=== PATIENT | male | born 1960 | race Caucasian/White ===

== ENCOUNTER 2023-06-15 09:33 | Emergency (ER) | payer MEDICAID ==
[2023-06-15 09:50] VITALS: TEMP 97.8
--- NOTE | 2023-06-15 09:59 | ED ---
Neuro HPI - General Chief Complaint: Neuro Symptoms/Deficit Stated Complaint: R Side Numbness Time Seen by Provider: 06/15/23 09:40 Source: patient, family Mode of arrival: ambulatory Limitations: no limitations - History of Present Illness Is the patient presenting with stroke symptoms?: Yes Initial Comments: 63-year-old male with past medical history of stroke who presents emergency department reporting strokelike symptoms. States he went to bed around 1030. When he woke this morning he noted that he had weakness in his right hand. 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 He has had previous stroke approximately 8 years ago. States that he did have weakness on his right side however his symptoms completely resolved. He does have a cardiac defect, suspected PFO according to the patient's description. States that he was in a study through [facility] where they trialed closure versus aspirin. As no one within the aspirin group had a stroke the patient opted to continue aspirin instead of having his whole repaired. He has not had any issues in the past 8 years up until now. Patient denies any weakness in his leg. No speech deficit. No headache. Upon my evaluation it appears that the patient does have some right-sided facial droop. is at bedside and states that this is also new for him. No other alleviating, precipitating modifying factors - Related Data Home Medications: Home Medications Medication Instructions Recorded Confirmed Aspirin EC [Ecotrin] 325 mg PO DAILY 06/15/23 06/15/23 Previous Rx's Medication Instructions Recorded Clopidogrel [Plavix] 75 mg PO DAILY #30 tablet 06/15/23 Allergies/Adverse Reactions: Allergies Allergy/AdvReac Type Severity Reaction Status Date / Time No Known Allergies Allergy Verified 06/15/23 10:18 Review of Systems ROS Statement: Those systems with pertinent positive or pertinent negative responses have been documented in the HPI. ROS Other: All systems not noted in ROS Statement are negative. General Exam Limitations: no limitations General appearance: alert, in no apparent distress Head exam: Present: atraumatic, normocephalic, normal inspection Eye exam: Present: normal appearance, PERRL, EOMI. Absent: scleral icterus, conjunctival injection, periorbital swelling ENT exam: Present: mucous membranes moist, other (Patient has flattening of the nasolabial fold on the right. This does correct with smile) Neck exam: Present: normal inspection. Absent: tenderness, meningismus, lymphadenopathy Respiratory exam: Present: normal lung sounds bilaterally. Absent: respiratory distress, wheezes, rales, rhonchi, stridor Cardiovascular Exam: Present: regular rate, normal rhythm, normal heart sounds. Absent: systolic murmur, diastolic murmur, rubs, gallop, clicks GI/Abdominal exam: Present: soft, normal bowel sounds. Absent: distended, tenderness, guarding, rebound, rigid Extremities exam: Present: full ROM, normal capillary refill, other (Patient does have very minimal decreased building performance specialist strength on the right). Absent: tenderness, pedal edema, joint swelling, calf tenderness Back exam: Present: normal inspection Neurological exam: Present: alert, oriented X3, CN II-XII intact Psychiatric exam: Present: normal affect, normal mood Skin exam: Present: warm, dry, intact, normal color. Absent: rash Stroke [facility] - Lab Data Result diagrams: 06/15/23 10:01 06/15/23 10:01 Lab Results 06/15/23 06/15/23 06/15/23 Range/Units 09:59 10:01 10:01 WBC 4.9 (3.8-10.6) k/uL RBC 4.56 (4.30-5.90) m/uL Hgb 13.2 (13.0-17.5) gm/dL Hct 41.7 (39.0-53.0) % MCV 91.4 (80.0-100.0) fL MCH 28.9 (25.0-35.0) pg MCHC 31.6 (31.0-37.0) g/dL RDW 13.4 (11.5-15.5) % Plt Count 208 (150-450) k/uL MPV 8.1 Neutrophils % 60 % Lymphocytes % 25 % Monocytes % 8 % Eosinophils % 3 % Basophils % 1 % Neutrophils # 3.0 (1.3-7.7) k/uL Lymphocytes # 1.3 (1.0-4.8) k/uL Monocytes # 0.4 (0-1.0) k/uL Eosinophils # 0.2 (0-0.7) k/uL Basophils # 0.0 (0-0.2) k/uL PT 10.7 (10.0-12.5) sec INR 1.0 (<1.2) APTT 22.3 (22.0-30.0) sec Sodium (137-145) mmol/L Potassium (3.5-5.1) mmol/L Chloride (98-107) mmol/L Carbon Dioxide (22-30) mmol/L Anion Gap mmol/L BUN (9-20) mg/dL Creatinine (0.66-1.25) mg/dL Est GFR (CKD-EPI)AfAm (>60 ml/min/1.73 sqM) Est GFR (CKD-EPI)NonAf (>60 ml/min/1.73 sqM) Glucose (74-99) mg/dL POC Glucose (mg/dL) 89 (70-110) mg/dL POC Glu It Architect ID Gordon Barnett Calcium (8.4-10.2) mg/dL Total Bilirubin (0.2-1.3) mg/dL AST (17-59) U/L ALT (4-49) U/L Alkaline Phosphatase (38-126) U/L Creatine Kinase (55-170) U/L Troponin I (0.000-0.034) ng/mL Total Protein (6.3-8.2) g/dL Albumin (3.5-5.0) g/dL 06/15/23 06/15/23 Range/Units 10:01 10:01 WBC (3.8-10.6) k/uL RBC (4.30-5.90) m/uL Hgb (13.0-17.5) gm/dL Hct (39.0-53.0) % MCV (80.0-100.0) fL MCH (25.0-35.0) pg MCHC (31.0-37.0) g/dL RDW (11.5-15.5) % Plt Count (150-450) k/uL MPV Neutrophils % % Lymphocytes % % Monocytes % % Eosinophils % % Basophils % % Neutrophils # (1.3-7.7) k/uL Lymphocytes # (1.0-4.8) k/uL Monocytes # (0-1.0) k/uL Eosinophils # (0-0.7) k/uL Basophils # (0-0.2) k/uL PT (10.0-12.5) sec INR (<1.2) APTT (22.0-30.0) sec Sodium 140 (137-145) mmol/L Potassium 4.6 (3.5-5.1) mmol/L Chloride 107 (98-107) mmol/L Carbon Dioxide 25 (22-30) mmol/L Anion Gap 8 mmol/L BUN 22 H (9-20) mg/dL Creatinine 1.07 (0.66-1.25) mg/dL Est GFR (CKD-EPI)AfAm 85 (>60 ml/min/1.73 sqM) Est GFR (CKD-EPI)NonAf 74 (>60 ml/min/1.73 sqM) Glucose 91 (74-99) mg/dL POC Glucose (mg/dL) (70-110) mg/dL POC Glu It Architect ID Calcium 9.0 (8.4-10.2) mg/dL Total Bilirubin 0.6 (0.2-1.3) mg/dL AST 27 (17-59) U/L ALT 23 (4-49) U/L Alkaline Phosphatase 50 (38-126) U/L Creatine Kinase 72 (55-170) U/L Troponin I <0.012 (0.000-0.034) ng/mL Total Protein 7.0 (6.3-8.2) g/dL Albumin 4.3 (3.5-5.0) g/dL - Medical Decision Making Was pt. sent in by a medical professional or institution ([facility], ROO[facility] [employer], urgent care, hospital, or prison...) When possible be specific @ -No Did you speak to anyone other than the patient for history (EMS, parent, family, police, friend...)? What history was obtained from this source @ -Spoke with the patient's for history Did you review nursing and triage notes (agree or disagree)? Why? @ -I reviewed and agree with nursing and triage notes Were old charts reviewed (outside hosp., previous admission, EMS record, old EKG, old radiological studies, urgent care reports/EKG's, prison records)? Report findings @ -No old charts were reviewed Differential Diagnosis (chest pain, altered mental status, abdominal pain women, abdominal pain men, vaginal bleeding, weakness, fever, dyspnea, syncope, headache, dizziness, GI bleed, back pain, seizure, CVA, palpatations, mental health, musculoskeletal)? @ -Differential CVA Ischemic stroke, hemorrhagic stroke, brain tumor, atypical migraine, Wernicke's encephalopathy, seizure, multiple sclerosis, meningitis, encephalitis, hypoglycemia, Guillain-Buitrago, electrolytes disturbance, myasthenia gravis.... This is not meant to be an all-inclusive list EKG interpreted by me (3pts min.). @ -Yes and demonstrates sinus rhythm with a rate of 67. MN interval 158. QRS 91. QTc of 417. No acute ST segment elevations or depressions X-rays interpreted by me (1pt min.). @ -None done CT interpreted by me (1pt min.). @ -Yes and demonstrates acute stroke U/S interpreted by me (1pt. min.). @ -None done What testing was considered but not performed or refused? (CT, X-rays, U/S, labs)? Why? @ -Echo and neurology consultation however patient refuses to be admitted to the hospital What meds were considered but not given or refused? Why? @ -None Did you discuss the management of the patient with other professionals (professionals i.e. DrMagno, PA, ROOF SLATER, lab, RT, psych nurse, social media marketing specialist, imaging system administrator, teacher, chief medical officer, case specialist)? Give summary @ -Spoke with Dr. Armendariz. Also agreed that if the patient leaves he should go AGAINST MEDICAL ADVICE as he does have further testing he would like to complete. He does recommend that the patient take aspirin and Plavix daily if he is going to go home as we would still like to protect the patient against another stroke Was smoking cessation discussed for >3mins.? @ -No Was critical care preformed (if so, how long)? @ -Yes, 35 minutes for code stroke activation Were there social determinants of health that impacted care today? How? (Homelessness, low income, unemployed, alcoholism, drug addiction, transportation, low edu. Level, literacy, decrease access to med. care, alf, rehab)? @ -No Was there de-escalation of care discussed even if they declined (Discuss DNR or withdrawal of care, Hospice)? DNR status @ -No What co-morbidities impacted this encounter? (DM, HTN, Smoking, COPD, CAD, Cancer, CVA, ARF, Chemo, Hep., AIDS, mental health diagnosis, sleep apnea, morbid obesity)? @ -Previous CVA Was patient admitted / discharged? Hospital course, mention meds given and route, prescriptions, significant lab abnormalities, going to OR and other pertinent info. @ -Upon arrival patient was seen and evaluated in room 24. Thorough history and physical exam was performed. Last known well was 1030. NIH is 2. I did activate a code stroke. Patient does go for CT which demonstrates an acute stroke. I did recommend admission for neurology consultation however patient wants to go home at this time. He is aware of the risks including further strokes, permanent deficits, permanent disability and . Patient is willing to accept these risks and continues to want to go home. He is of sound mind and capable of making his own decision. His is at bedside and does attempt to talk him into staying however he does not want to. I did call and speak with Dr. Armendariz. He feels that the patient should be on aspirin and Plavix. He would like the patient admitted for further workup however he is made aware that the patient does not want to be admitted and will leave AGAINST MEDICAL ADVICE. We will offer recommendations and I will write a prescription for the Plavix to take in conjunction with aspirin as I do not want the patient to have any further deficits. Patient is aware of the bleeding risks. States that he needs to follow-up with his primary care doctor to evaluate these risks once he is initiated on this medication. He also needs to have an MRI and neurology consultation. Patient may need to see a bend sorter because of his cardiac defect leading to strokes. Patient understood all this. Requested that he return should he be agreeable to admission. Patient discharged AGAINST MEDICAL ADVICE home Undiagnosed new problem with uncertain prognosis? @ -No Drug Therapy requiring intensive monitoring for toxicity (Heparin, Nitro, Insulin, Cardizem)? @ -No Were any procedures done? @ -No Diagnosis/symptom? @ -Acute right-sided weakness, acute CVA Acute, or Chronic, or Acute on Chronic? @ -Acute Uncomplicated (without systemic symptoms) or Complicated (systemic symptoms)? @ -Complicated Side effects of treatment? @ -No Exacerbation, Progression, or Severe Exacerbation? @ -No Poses a threat to life or bodily function? How? (Chest pain, [place], [place], pneumonia, PE, COPD, DKA, ARF, appy, cholecystitis, CVA, Diverticulitis, Homicidal, S uicidal, threat to staff... 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 Past Surgical History: Hernia Repair Smoking Status: Never smoker Course Vital Signs 06/15/23 06/15/23 06/15/23 09:35 09:39 10:00 Temperature 97.8 F Pulse Rate 68 70 Respiratory 20 18 20 Rate Blood Pressure 171/110 165/104 159/95 O2 Sat by Pulse 100 98 98 Oximetry 06/15/23 06/15/23 06/15/23 10:39 11:15 11:39 Temperature Pulse Rate 64 70 67 Respiratory 16 18 16 Rate Blood Pressure 144/92 139/109 O2 Sat by Pulse 98 97 97 Oximetry 06/15/23 14:05 Temperature Pulse Rate 75 Respiratory 20 Rate Blood Pressure 145/86 O2 Sat by Pulse 98 Oximetry Disposition Clinical Impression: Right arm weakness, Facial droop, CVA (cerebral vascular accident) Disposition: LEFT AGAINST MEDICAL ADVICE Condition: Serious Instructions (If sedation given, give patient instructions): Stroke (DC) Additional Instructions: Please take the Plavix daily with a full dose aspirin. Follow-up with your primary care doctor and have an MRI performed. You will likely need to see a neurologist and bend sorter in the future. Please return for any new or worsening symptoms Prescriptions: Clopidogrel [Plavix] 75 mg PO DAILY #30 tablet Is patient prescribed a controlled substance at d/c from ED?: No Referrals: Kim Agrawal MD [Primary Care Provider] - 1-2 days Time of Disposition: 13:20
[2023-06-15 10:01] LABS: Glucose,Whole Blood 89 mg/dL (70-110)
[2023-06-15 10:12] LABS: Basophils % (A) 1 %; Eosinophils # (A) 0.2 k/uL (0-0.7); Eosinophils % (A) 3 %; HCT 41.7 % (39.0-53.0); HGB 13.2 gm/dL (13.0-17.5); Lymphocytes # (A) 1.3 k/uL (1.0-4.8); Lymphocytes % (A) 25 %; MCH 28.9 pg (25.0-35.0); MCHC 31.6 g/dL (31.0-37.0); MCV 91.4 fL (80.0-100.0); Mean Platelet Volume 8.1; Monocytes # (A) 0.4 k/uL (0-1.0); Monocytes % (A) 8 %; Neutrophils % (A) 60 %; Platelet Count 208 k/uL (150-450); RBC 4.56 m/uL (4.30-5.90); RDW 13.4 % (11.5-15.5); WBC 4.9 k/uL (3.8-10.6)
--- NOTE | 2023-06-15 10:18 | CT ---
CT head without contrast HISTORY: Neuro deficit possible stroke. COMPARISON: None. TECHNIQUE: Multiple axial images are obtained from the skull base to vertex without use of IV contras t material. FINDINGS: The ventricles, basal cisterns and sulci over the convexities are within normal limits and there is n o mass effect or shift of midline structures. There is a moderate focal area of decreased density involving the cortex and subcortical white matter of the left frontal lobe consistent with acute ischemic infarct. There is no acute intra or extra-ax ial hemorrhage. The posterior fossa including the brainstem, fourth ventricle and cerebellopontine angles are grossly normal. Intraorbital contents appear normal symmetric. Visualized paranasal sinuses and mastoid air cells are well aerated. Calvarium is intact. IMPRESSION: 1. Acute left frontal infarct. 2. No acute bleed or mass effect.
[2023-06-15 10:20] LABS: Partial Thromboplastin Time 22.3 sec (22.0-30.0); Prothrombin Time 10.7 sec (10.0-12.5)
[2023-06-15 10:21] LABS: ALT 23 U/L (4-49); AST 27 U/L (17-59); African American GFR (CKD) 85 (>60 ml/min/1.73 sqM); Albumin 4.3 g/dL (3.5-5.0); Alkaline Phosphatase 50 U/L (38-126); Anion Gap 8 mmol/L; Blood Urea Nitrogen 22 mg/dL (9-20); Carbon Dioxide 25 mmol/L (22-30); Chloride 107 mmol/L (98-107); Creatine Kinase 72 U/L (55-170); Glucose 91 mg/dL (74-99); Non-African American GFR(CKD) 74 (>60 ml/min/1.73 sqM); Sodium 140 mmol/L (137-145); Total Bilirubin 0.6 mg/dL (0.2-1.3)
[2023-06-15 10:38] LABS: Potassium 4.6 mmol/L (3.5-5.1)
--- NOTE | 2023-06-15 10:44 | CT ---
EXAMINATION TYPE: CT angio head neck DATE OF EXAM: 06/15/2023 HISTORY: right arm numbness COMPARISON: None CT DLP: 780.8 mGycm. Automated Exposure Control for Dose Reduction was Utilized. TECHNIQUE: CTA scan of the head and neck is performed with IV Contrast, patient injected with 65 mL of Isovue 370, axial images are obtained, coronal and sagittal reformatted images are reviewed. 3D re constructed images are created on an independent workstation and reviewed. FINDINGS: The brachiocephalic origins are widely patent and no significant stenosis. There is no significant stenosis of the common or internal carotid arteries within the neck. There is no stenosis of the vertebral arteries. Intracranially, there is no stenosis, segmental occlusion, sizable aneurysm sac or vascular malformat ion. IMPRESSION:. No significant abnormality seen. NASCET criteria was used in interpretation of this exam?
[2023-06-15] MEDS: CLOPIDOGREL 75 MG TAB PO STA (14:02)
[2023-06-15 14:27] VITALS: BP 145/86; PULSE 75; RESP 20
== END 2023-06-15 14:06 | disposition left against medical advice (07) ==
LOC: EC 09:33
DX: I63.9 Cerebral infarction, unspecified (principal); R29.702 NIHSS score 2
CPT/HCPCS: 36415; 93005; 80053; 82550; 84484; 85025; 85610; 85730; 70496; 70450; 70498; 99285; Q9967